=== PATIENT | male | born 1980 | race American Indian/Alaskan Native ===

== ENCOUNTER 2018-09-16 14:42 | Emergency (ER) | payer OTHER ==
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
== END 2018-09-16 16:12 | disposition home or self-care (01) ==
LOC: ED 14:42
CPT/HCPCS: 99282